=== PATIENT | female | born 1985 ===

== ENCOUNTER 2023-02-05 10:00 | Day surgery (SDC) | payer OTHER ==
[2023-02-05] MEDS ORDERED: LACTATED RINGERS 1,000 ML IV SCH (10:21)
[2023-02-05 10:36] VITALS: TEMP 97.9
[2023-02-05] MEDS ORDERED: PROPOFOL 10 MG/ML 20 ML VIAL IV ONE (12:01)
--- NOTE | 2023-02-05 12:14 | P.PCN ---
Date of Procedure: 02/05/23 Procedure(s) Performed: BRIEF HISTORY: Patient is a 37-year-old pleasant white female scheduled for an elective colonoscopy as a part of evaluation of right lower quadrant abdominal pain for the last several months duration. She has intermittent diarrhea. She CT of the abdomen and pelvis done in August 2042 which revealed punctate thickening of the colon from cecum to transverse colon. She was treated with antivirals and his symptoms resolved. PROCEDURE PERFORMED: Colonoscopy with biopsy. PREOPERATIVE DIAGNOSIS: Right lower quadrant abdominal pain of several months duration. IV sedation per Anesthesia. PROCEDURE: After informed consent was obtained, the patient, was brought into the endoscopy unit. IV sedation was administered by Anesthesia under continuous monitoring. Digital rectal examination was normal. Initially the Olympus CF-160 flexible video colonoscope was then inserted in the rectum, gradually advanced into the cecum without any difficulty. Careful examination was performed as the scope was gradually being withdrawn. Ileocecal valve and the appendiceal orifice were visualized and appeared normal. Terminal ileum was intubated and 20 cm visualized and appeared normal. Prep was excellent. Mucosa of the cecum, ascending colon, transverse colon, descending colon, sigmoid colon, and rectum appeared normal. Random biopsies were done from ascending and descending colon to rule out microscopic/collagenous colitis Retroflexion was performed in the rectum and no lesions were seen. The patient tolerated the procedure well. IMPRESSION: Normal-appearing colon from rectum to cecum with no evidence of colitis or colorectal neoplasia. RECOMMENDATIONS: Findings of this examination were discussed with the patient as well as a family. She was advised to follow with the biopsy results.. In office in 3-4 weeks. Recommend repeat screening colonoscopy at age 47.
[2023-02-05 12:40] VITALS: BP 123/74; PULSE 64; RESP 18
== END 2023-02-05 12:52 | disposition home or self-care (01) ==
LOC: ORWHC2ENDO 10:00
PROVIDERS: ATTEND Internal Medicine Gastroenterology
DX: R10.31 Right lower quadrant pain (principal)
CPT/HCPCS: 81025; 88305; 45380; J2704